=== PATIENT | female | born 1990 | race American Indian/Alaskan Native ===

== ENCOUNTER 2020-05-22 13:04 | Outpatient (CLI) | payer OTHER ==
[2020-05-22 13:47] VITALS: BP 101/57
[2020-05-22] MEDS ORDERED: LACTATED RINGERS 500 ML IV ONE (15:00)
== END 2020-05-22 14:36 | disposition home or self-care (01) ==
LOC: TRG 13:04 → APU 13:05 → TRG 14:36
PROVIDERS: ATTEND Obstetrics & Gynecology
DX: O42.913 Preterm premature rupture of membranes, unspecified as to length of time between rupture and onset of labor, third trimester (principal); Z3A.34 34 weeks gestation of pregnancy
CPT/HCPCS: 59025

== ENCOUNTER 2020-06-28 14:33 | Outpatient (CLI) | payer OTHER ==
[2020-06-28 15:03] VITALS: BP 108/70
== END 2020-06-28 15:35 | disposition home or self-care (01) ==
LOC: TRG 14:33
PROVIDERS: ATTEND Obstetrics & Gynecology
DX: O47.1 False labor at or after 37 completed weeks of gestation (principal); Z3A.39 39 weeks gestation of pregnancy
CPT/HCPCS: 59025